=== PATIENT | male | born 1990 | race Caucasian/White ===

== ENCOUNTER 2021-11-06 12:35 | Outpatient (REF) | payer OTHER, SELFPAY ==
[2021-11-06 14:30] LABS: Binax Internal Control QC Valid; Binax Lot number: 9864; Binax Now Covid-19 Ag Positive (Negative)
== END 2021-11-06 12:36 | disposition home or self-care (01) ==
LOC: HO.LAB 12:35
PROVIDERS: Visit Provider Internal Medicine
DX: Z20.822 Contact with and (suspected) exposure to COVID-19 (principal)
CPT/HCPCS: 36415; C9803

== ENCOUNTER 2023-10-06 14:10 | Outpatient (AMB) | payer MEDICAID, SELFPAY ==
--- NOTE | 2023-10-06 14:17 | MHC.OFFVIS ---
Intake Intake Visit Reasons: radiculopathy Front Attendant Required: No Assessment & Plan Assessment & Plan (1) Lumbar disc herniation: Code(s): M51.26 - Other intervertebral disc displacement, lumbar region Plan Dear Jose Thank you for referring Mr Mar to our office today. He is a 33-year-old gentleman who presents to the office today with a 1 year history of pain in his low back radiating down his left leg into his outer calf into the top of his foot. 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 Since that time the pain is continued to escalate and ultimately underwent an MRI showing herniated disc on the left at L4-5. He underwent a cortisone shot with no significant improvement. He also underwent a series of physician guided home exercise routine for 6 weeks without any improvement. He has tried Tylenol, Motrin and gabapentin. He smokes marijuana daily to help with the pain. He also tried a steroid taper which helped but did not like how it made him feel. He is here today to see us for surgical consideration. PMH: He had spontaneous pneumothorax a number of years ago which was treated with a chest tube but has had no sequelae from that and is otherwise healthy. Social hx: He smokes cigars and vapes daily, smokes marijuana daily but no hard drugs and only occasionally drinks alcohol Medications: Tylenol, Motrin, gabapentin Allergies: None Physical exam: Intact strength reflexes and gait Imaging review: Lumbar MRI done at [facility] shows a herniated disc on the left at L4-5 compressing the left L5 nerve Impression: Study 3-year-old male presents to the office for evaluation of left L5 radiculopathy in the setting of a herniated disc. The patient has failed conservative treatment as outlined above. I think he would be an excellent candidate for left L4-5 microdiskectomy. The patient is concerned about taking 6 weeks off from work. He is going to speak with his boss and contact us if he would like to proceed. He has a very physical job and I admonished him that going right back to heavy lifting after surgery would result in a recurrent disc herniation. Once he can coordinate the time off he will contact our office for planning surgery. Patient was given all pertinent risks and benefits of surgery. I will update Dr. Bonner on his imaging and the plan. Thank you for allowing us to care for your patient. The total time spent with this visit with this patient was 45 minutes reviewing history, physical exam, lumbar imaging review, and implementation of treatment plan or further diagnostic testing Kurtis Bonner MD,PhD [facility] Coding Level of Care Code New Pt Level 4 (01545) Diagnoses Lumbar disc herniation M51.26
== END 2023-10-06 14:45 | disposition home or self-care (01) ==
PROVIDERS: PCP Family Medicine; Referring Provider Physician Assistant; Visit Provider Physician Assistant
DX: M51.26 Other intervertebral disc displacement, lumbar region (principal)
CPT/HCPCS: 99204

== ENCOUNTER → 2023-10-06 14:10 | Outpatient (BNVA) | payer MEDICAID, SELFPAY | PROVIDERS: PCP Family Medicine; Visit Provider Physician Assistant | DX: M51.26 Other intervertebral disc displacement, lumbar region (principal) | CPT/HCPCS: 99212 ==

== ENCOUNTER 2023-12-21 07:16 | Day surgery (SDC) | payer MEDICAID, SELFPAY ==
[2023-12-06 11:08] VITALS: BMI 33.7
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
[2023-12-21] VITALS (14 sets, daily range): BP systolic 112–140; BP diastolic 60–79; PULSE 48–103; RESP 16–20; TEMP 36.8–36.9; O2SAT 97–100; BMI 31.9
--- NOTE | ~2023-12-21 | FL_ITS ---
EXAMINATION: Intraoperative fluoroscopy CLINICAL INFORMATION: L4-5 microlumbar decompression COMPARISON: None. TECHNIQUE: Intraoperative fluoroscopy was provided for use by Dr. Bonner. A total of 2 images were saved to PACS. A radiologist was not present during imaging. Today's dictation is only for administrative purposes to document intraoperative fluoroscopic usage. TOTAL FLUOROSCOPIC TIME: 0.0 minutes DAP: 0.771 Gy-cm FL/FL guidance in OR FINDINGS~\^^ Intraoperative fluoroscopy provided for use by Dr. Bonner. Please see operative note for detailed findings.
--- NOTE | 2023-12-21 07:14 | P.HPSUR_ITS ---
Pre-Procedural Eval Section A - 24 Hr Update-Section A only Date of Service: 12/21/23 The patient is an INPATIENT: No Changes since office visit: No Cold of Flu in the past 2 weeks, No New Medical Problems, No Changes in Medication and No Patient answered all questions The patient has been examined within 24 hours of the surgical procedure. The History & Physical has been completed within 30 days and I have reviewed it.: No Section B - Complete if H&P > 30 days Chief Complaint: Other intervertebral disc displacement, lumbar reg Allergies: Allergies Allergy/AdvReac Type Severity Reaction Status Date / Time No Known Allergies Allergy Verified 12/06/23 11:07 Review of Systems Sugical H&P ROS: Negative: Constitution, Cardiovascular, Respiratory, Neurological, Psychiatric, Hem-Onc, Allergic/Immunologic, Gastrointestinal, Genitourinary, Musculoskeletal, Integumentary, Endocrine and Eyes/Ears/Nose/Thr oat Exam Surgical H&P Exam: Not Evaluated: HEENT, Not Evaluated: Heart, Not Evaluated: Lungs, Not Evaluated: Extremities, Not Evaluated: Abdomen, Not Evaluated: Skin and Not Evaluated: Neurological Plan Diagnosis/Plan: Unchanged left L4-5 microdiskectomy Time Spent With Patient Time: Total time managing care of this patient today _5___ minutes.
[2023-12-21] MEDS: methocarbamoL 750 MG TABLET PO (07:56)
[2023-12-21] MEDS: Gabapentin 300 MG CAPSULE PO (07:57)
[2023-12-21] MEDS: Lactated Ringers 1,000 ML 100 ML IVCONT (08:16)
--- NOTE | 2023-12-21 10:18 | W.PM.OPN ---
Operative Note Operative Note Date of Service: 12/21/23 Narrative: Preoperative diagnosis: Left lumbar radiculopathy due to disc herniation Postoperative diagnosis: Same Procedure: Left L4-5 lumbar microdiskectomy with microscope Surgeon: Filiberto Bonner MD, PhD Tailor Men'S Ready To Wear: katy Franklin This patient is suffering from a left lumbar radiculopathy due to a disc herniation L4-5. The patient was offered a lumbar microdiskectomy to decompress the nerve root. The procedure complications were explained. The patient was consented. The patient was brought to the operating room and endotracheally intubated. The patient was turned in a prone position on the Travis frame. Prepping and draping was done followed by time-out. A mid lumbar incision was made followed by release of the paravertebral muscles on the left side to expose the L4-5 interspace. An intraoperative x-rays obtained to confirm the correct level. The microscope was brought in. A left L4 laminotomy was done followed by opening of the flavum ligament. The L5 nerve root was identified and retracted medially to expose the L4-5 disc space. I could palpate a disc herniation medial from the L5 nerve root. An annulotomy was done after disc material presented itself, which I carefully removed with a pituitary. The disc space was inspected and any residual disc fragments were removed. This resulted in an excellent decompression of the L5 nerve root. Hemostasis was done. The microscope was removed. Marcaine was injected intramuscularly.The incision was closed in two layers. Steri-Strips used to approximate seizure. An op-site were taken there was used to cover the incision. All sponge and needle counts were correct. Patient was extubated and transported in stable condition to recovery room. this procedure was done with the aid of a physician family service assistant who performed the initial exposure until the microscope was brought in and performed the closure of the incision. Anesthesia: General Blood loss: 10 mL Complications: None Specimen: None Surgical time: 40 minutes Disposition: Discharge home
--- NOTE | 2023-12-21 10:21 | PM.DS ---
DS: Providers Provider Date of Service: 12/21/23 Date of discharge: 12/21/23 Primary care physician: DAMI Dickerson Admitting clinician: Filiberto Bonner DS: Diagnosis Discharge Diagnosis (1) Lumbar disc herniation: Status: Acute DS: Summary Time Attestation Discharge coordination time: Less than 30 minutes Quality: Safe Use of Opioids Does Pt have an Active Cancer Diagnosis on the Problem List?: No Quality: Stroke Does the patient have a stroke diagnosis?: No Physical Exam Vital Signs: Vital Signs: Last Vital Signs Temp 98.5 F 12/21/23 07:41 Pulse 58 12/21/23 07:41 Resp 18 12/21/23 07:41 BP 127/60 12/21/23 07:41 Pulse Ox 98 12/21/23 07:41 O2 Del Method Room Air 12/21/23 07:41 BMI result Body Mass Index 31.9 Discharge Plan Discharge Patient Disposition: Home, Self-Care Referrals: Ansley Chase PA [Primary Care Provider] - 1 Week Discharge Medications: New docusate sodium [Colace] 100 mg capsule 100 mg PO BID Qty: 20 0RF oxycodone 5 mg tablet 5 mg PO Q8H PRN (Reason: pain) Qty: 30 0RF Rx Instructions: Partial Fill upon patient request. Discharge Orders: Discharge Order (Routine); Ordered 12/21/23 Ordered By: Kurtis Cherry Diet: Advance to usual diet Activity on Discharge: As tolerated Activity Restrictions/Additional Instructions: After your spinal surgery we ask you to observe the following restrictions/guidelines: Activity: It is normal to feel some discomfort as you increase your activity, but that will improve with time. We ask you avoid heavy lifting or acitivities that cause pain. As a general rule, 8lbs is a safe limit for lifting right after surgery. Walk as much as you feel comfortable but not to exhaustion. You will feel extra tired the first few days after surgery. Stay well hydrated. It is OK to walk up and down stairs You may return to driving when you are off narcotics (such as vicodin, oxycodone, dilaudid, etc), and you are back to normal functional capacity. If you have any concerns please check with office before driving. Return to work is specific to each patient and each surgery, so please speak with your doctor/PA at first follow up. Please bring paperwork such as FMLA at that time if you need it filled out. Medications: For optimum pain control, it is best to start with a combination of 500 mg of Tylenol every 4 hours with 600 mg of Motrin every 8 hours, and use narcotics as needed in between for breakthrough pain. We will give you a short supply of narcotics after surgery (usually one weeks worth). If you need more please call the office but do not use more than prescribed. You will need to give our office 48 hours notice if you need narcotics refilled and we do not fill narcotics on weekends or evenings. If you are on a narcotic, it is a good idea to take a stool softener such as colace or senna to avoid constipation If you take blood thinner such as aspirin, Plavix, Coumadin, Effient, Eliquis etc for conditions such as Afib, DVT, Pulmonary embolus, coronary disease, stents etc please speak with your surgeon about specific details as to when you can resume these medications. You can resume NSAIDs on post op day 1 (eg: Motrin, Naproxen, etc). Follow up: Please call the office, , after surgery to arrange a 3 week follow up for wound check. Wound Care: You may remove your dressing on the first day after surgery. ?You may ?leave open to air. Please do not remove the steri strips underneath. they will fall off on their own in one week. IT IS NORMAL FOR THE WOUND TO OOZE OR BE BLOODY FOR A FEW DAYS AFTER SURGERY. ?IF THIS HAPPENS JUST PLACE NEW DRESSING OVER IT TO AVOID STAINING CLOTHES. You may shower on post op day # 1 We ask that you do not let the water soak the wound. If it does get wet, just towel dry lightly. Please do not scrub your incision or place any type of chemical/ointment on the wound. No tub baths, pools or jacuzzis for one month. If you have any leaking or redness from your wound, or fevers, please call office
[2023-12-21] MEDS: fentaNYL citrate/PF 100 MCG/2 ML VIAL 50 MCG IVPUSH (11:43)
== END 2023-12-21 14:34 | disposition home or self-care (01) ==
PROVIDERS: PCP Physician Assistant; Visit Provider Neurological Surgery
PROC: (CPT 63030; principal; 2023-12-21 09:10)
DX: M51.26 Other intervertebral disc displacement, lumbar region (principal); Z87.09 Personal history of other diseases of the respiratory system; Z79.1 Long term (current) use of non-steroidal anti-inflammatories (NSAID); Z79.899 Other long term (current) drug therapy; F17.290 Nicotine dependence, other tobacco product, uncomplicated; F12.90 Cannabis use, unspecified, uncomplicated
CPT/HCPCS: 63030; J0131; J0690; J1596; J1885; J2250; J2405; J2704; J3010

== ENCOUNTER → 2023-12-21 07:16 | Outpatient (BNV) | payer MEDICAID, SELFPAY | PROVIDERS: PCP Physician Assistant; Visit Provider Neurological Surgery | DX: M51.26 Other intervertebral disc displacement, lumbar region (principal) | CPT/HCPCS: 63030; 99499 ==

== ENCOUNTER 2024-01-11 09:12 | Outpatient (AMB) | payer MEDICAID, SELFPAY ==
--- NOTE | 2024-01-11 09:20 | A.SPINEOV_ITS ---
Intake Intake Visit Reasons: 1st post op Intake Note: Mr. Mar is here today for 1st post op. Employment Trainer Required: No Allergies No Known Allergies Allergy (Verified 12/06/23 11:07) Assessment & Plan Assessment & Plan (1) S/P lumbar microdiscectomy: Code(s): Z98.890 - Other specified postprocedural states Plan Procedure: Left L4-5 lumbar microdiskectomy Ran comes in today for his 1st postoperative visit. He reports he is satisfied with surgery and feels much better than he did pre-operatively. The patient reports he is up walking around and completing the majority of his ADLs. He still has some difficulty with stairs and bending/lifting. However, he reports that he no longer suffers from his left-sided shooting radiculopathy. We discussed return to work guidelines, the healing course for disc herniations & microdiskectomy procedures, and FMLA/short-term disability. No new neurological deficits. Ran is able to ambulate well, rises from a seated position with some difficulty, but can do so unassisted. Incision site is closed, well healing, with no signs of drainage. We will follow-up with the patient in 6 weeks for his 2nd postoperative visit. Leonel Bonner MD,PhD [facility] Coding Level of Care Code Global (65785) Diagnoses S/P lumbar microdiscectomy Z98.890
== END 2024-01-11 09:35 | disposition home or self-care (01) ==
PROVIDERS: PCP Physician Assistant; Visit Provider Physician Assistant
DX: Z98.890 Other specified postprocedural states (principal)
CPT/HCPCS: 99024

== ENCOUNTER → 2024-01-11 09:12 | Outpatient (BNVA) | payer MEDICAID, SELFPAY | PROVIDERS: PCP Physician Assistant; Visit Provider Physician Assistant | DX: Z47.89 Encounter for other orthopedic aftercare (principal); Z98.890 Other specified postprocedural states | CPT/HCPCS: 99212 ==

== ENCOUNTER 2024-02-22 09:26 | Outpatient (AMB) | payer MEDICAID, SELFPAY ==
--- NOTE | 2024-02-22 09:29 | A.SPINEOV_ITS ---
Intake Intake Visit Reasons: 2nd Post op Intake Note: Mr. Mar is here today for his 2nd Post-op appointment. 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 He continues to do very well since his surgery. He reports zero pain, and zero radiculopathy. He states that he already has essentially returned to normal activity, but is not engaging in a heavy weightlifting. He feels well overall, and would like to return to work. I informed him that he is able to return to work as long as he does not engage in any excessive her heavy weightlifting. I wrote him a return to work letter that states this. I answered all of his questions to the best of my ability. No new neurological deficits. Patient is able to ambulate well, rises from a seated position without difficulty. Incision sites are closed, well healing, with no signs of drainage. There is no need for continued routine follow-up with Ran, he may be discharged as a patient. Leonel Bonner MD,PhD [facility] Coding Level of Care Code Global (27558) Diagnoses S/P lumbar microdiscectomy Z98.890
== END 2024-02-22 10:16 | disposition home or self-care (01) ==
PROVIDERS: PCP Physician Assistant; Visit Provider Physician Assistant
DX: Z98.890 Other specified postprocedural states (principal)
CPT/HCPCS: 99024

== ENCOUNTER → 2024-02-22 09:26 | Outpatient (BNVA) | payer MEDICAID, SELFPAY | PROVIDERS: PCP Physician Assistant; Visit Provider Physician Assistant | DX: Z98.890 Other specified postprocedural states (principal) | CPT/HCPCS: 99212 ==

== ENCOUNTER 2024-02-28 15:11 | Outpatient (AMB) | payer MEDICAID, SELFPAY ==
--- NOTE | 2024-02-28 15:23 | A.SPINEOV_ITS ---
Intake Visit Reasons: Discuss Disability paper Intake Note: Mr. Mar is here today to Discuss disability paper's. 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 He continues to report resolution of symptoms and states he feels much better than he did prior to surgery. He brought in paperwork from his work today that he asked us to sign stating that he can lift 50 lb regularly. He was informed that the data shows that most disc herniations happen between 6 weeks to 3 months after surgery. He was informed that if we sign this paperwork he is assuming the risk that he may re-herniate the disc in his back that was just surgically corrected. He states that he needs to return to work or may risk losing his job therefore would like the paperwork signed. I signed the paperwork forearm and attempted to educate him on proper lifting utilizing his legs versus his back. Leonel Bonner MD,PhD [facility] Coding Level of Care Code Global (17601) Diagnoses S/P lumbar microdiscectomy Z98.890
== END 2024-02-28 15:58 | disposition home or self-care (01) ==
PROVIDERS: PCP Physician Assistant; Visit Provider Physician Assistant
DX: Z98.890 Other specified postprocedural states (principal)
CPT/HCPCS: 99024

== ENCOUNTER → 2024-02-28 15:11 | Outpatient (BNVA) | payer MEDICAID, SELFPAY | PROVIDERS: PCP Physician Assistant; Visit Provider Physician Assistant | DX: Z98.890 Other specified postprocedural states (principal) | CPT/HCPCS: 99212 ==